=== PATIENT | female | born 1950 | race Hispanic/Latino ===

== ENCOUNTER 2020-06-06 08:20 | Outpatient (CLI) | payer BC ==
[2020-06-06 09:34] LABS: Blood Urea Nitrogen 10 mg/dL (7-17)
--- NOTE | 2020-06-06 14:00 | Cat Scan Report ---
CT CHEST WITH CONTRAST INDICATION / CLINICAL INFORMATION: WEIGHT LOSS, ABDOMINAL PAIN. TECHNIQUE: Axial CT images were obtained through the chest after 100 cc of Omnipaque 300 IV contrast. Sagittal a nd coronal reformatted images. All CT scans at this location are performed using CT dose reduction fo r ALARA by means of automated exposure control. COMPARISON: None available. FINDINGS: HEART: No significant abnormality. THORACIC AORTA: No significant abnormality. MEDIASTINUM and EPI: No significant abnormality. LUNGS: No acute air space or interstitial disease. PLEURA: No significant pleural effusion. No pneumothorax. SKELETAL SYSTEM: No significant abnormality. ADDITIONAL FINDINGS: None. IMPRESSION: No significant abnormality. CT ABDOMEN AND PELVIS WITH CONTRAST HISTORY: WEIGHT LOSS, ABDOMINAL PAIN COMPARISON: None. TECHNIQUE: Axial CT images were obtained through the abdomen and pelvis after 100 cc of Omnipaque 300 intravenously. Sagittal and coronal reformatted images. All CT scans at this location are performed using CT dose reduction for ALARA by means of automated exposure control. FINDINGS: CT ABDOMEN: Liver: No significant abnormality. Biliary: No significant abnormality. Spleen: No significant abnormality. Unenlarged. Pancreas: No significant abnormality. Adrenals: No significant abnormality. Kidneys: No significant abnormality. Lymphatics: No lymphadenopathy. Vasculature: No significant abnormality. Bowel/Peritoneum: No significant abnormality. No free air. Trace free fluid in the cul-de-sac appears physiologic. Normal appendix. CT PELVIS: : Hysterectomy changes are suspected. The bladder and distal ureters are unremarkable. Osseous Structures: No significant abnormality. Additional Findings: None IMPRESSION: No significant abnormality. No clear explanation for weight loss or abdominal pain. Signer Name: Celestino Deng Jr, MD Signed: 06/06/2020 1:55 PM Workstation Name: [id number]
== END 2020-06-06 08:21 | disposition home or self-care (01) ==
LOC: CT 08:20
PROVIDERS: ATTEND Internal Medicine
DX: R10.9 Unspecified abdominal pain (principal); R63.4 Abnormal weight loss
CPT/HCPCS: 36415; 71260; 74177; 82550; 82565; 84520; Q9967

== ENCOUNTER 2020-09-11 09:29 | Outpatient (CLI) | payer BC ==
[2020-09-11 10:13] LABS: Bilirubin,Urine NEG (Negative); Blood,Urine NEG (Negative); Color,Urine Yellow (Yellow); Protein,Urine <15 mg/dL mg/dL (Negative); Urobilinogen,Urine < 2.0 mg/dL (<2.0)
[2020-09-11 10:20] LABS: Hematocrit 38.1 % (30.3-42.9); Hemoglobin 13.1 gm/dl (10.1-14.3); Mean Corpuscular HGB Conc 34 % (30-34); Mean Corpuscular Volume 93 fl (79-97); Platelet Count 285 K/mm3 (140-440)
[2020-09-11 11:20] LABS: Alanine Aminotransferase 9 units/L (7-56); Albumin 4.6 g/dL (3.9-5); Blood Urea Nitrogen 11 mg/dL (7-17); HDL Cholesterol 65 mg/dL (40-59); Hemolysis Index 10; LDL Cholesterol,Direct 89 mg/dL (50-130)
[2020-09-11 11:21] LABS: Free T4 (Free Thyroxine) 1.36 ng/dL (0.76-1.46)
[2020-09-11 12:02] LABS: BUN/Creatinine Ratio 16
[2020-09-14 14:09] LABS: Vitamin D, 25-OH, D2 <4 ng/mL
== END 2020-09-11 09:30 | disposition home or self-care (01) ==
LOC: LAB 09:29
PROVIDERS: ATTEND Internal Medicine
DX: Z00.00 Encounter for general adult medical examination without abnormal findings (principal); E03.9 Hypothyroidism, unspecified; E11.9 Type 2 diabetes mellitus without complications; E55.9 Vitamin D deficiency, unspecified
CPT/HCPCS: 36415; 80053; 80061; 81001; 82306; 83036; 84439; 84443; 84480; 85027